=== PATIENT | female | born 1950 | race Caucasian/White ===

== ENCOUNTER → 2017-07-11 | Day surgery (SDC) | payer OTHER, MEDICARE ==
[~2017-07-11] MED LIST: ACETAMINOPHEN 1000 MG/100 ML 100 ML IV ONE; ADVA250A INH; AZIT500I PO; BUPIVACAINE/EPINEPHRINE 0.5% PF 10 ML VIAL ONE; COMBAER INH; ISOSULFAN BLUE 50 MG/5 ML VIAL SQ ONE; LACTATED RINGER'S 1000 ML INJ 1,000 ML ONE; LIDOCAINE 1.5%/EPINEPHrine 1:200,000 PF SOLN 30 ML AMP ONE; MIDAZOLAM HCL 2 MG/2 ML VIAL ONE; ONDANSETRON HCL 4 MG/2 ML VIAL IV PUSH ONE; PRED10PA PO; PROPOFOL 200 MG/20 ML AMP IV ONE; VENTAER INH; ceFAZolin INJ 1,000 MG VIAL ONE
--- NOTE | 2017-07-11 12:56 | TN ---
cc: [facility], SALLY VÁSQUEZ JOSEPH D. M.D. DATE OF SURGERY 07/11/2017 PREOPERATIVE DIAGNOSES Right-sided breast cancer 9 o'clock position POSTOPERATIVE DIAGNOSIS Right-sided breast cancer 9 o'clock position PROCEDURE 1. Injection Lymphazurin blue dye for lymphatic mapping identifying sentinel nodes x3. 2. A needle-localized excisional quadrantectomy or segmental mastectomy for breast cancer to obtain clear margins. ANESTHESIA General SURGEON Dr. Sorto 2 YEAR OLDS PRESCHOOL TEACHER Ms. Jazzmine De Leon, advanced registered nurse practitioner The LICENSED CLINICAL SOCIAL WORKER was present from beginning to the end of the case assisting in all portions of the procedure. It was necessary to have this individual in the room to assist in the above surgical procedure. The surgical procedure was assisted by the LICENSED CLINICAL SOCIAL WORKER. The LICENSED CLINICAL SOCIAL WORKER presence was necessary throughout the case for appropriate retraction, dissection, visualization, and resection of the important anatomical structures during the surgical procedure. The LICENSED CLINICAL SOCIAL WORKER was assisting throughout the entirety of the operation. The skill set of the LICENSED CLINICAL SOCIAL WORKER is medically and surgically necessary to safely complete the surgical procedure. During the surgical case, the operating room nanoscience technician was working instrument table and passing instruments to the attending surgeon and LICENSED CLINICAL SOCIAL WORKER. The LICENSED CLINICAL SOCIAL WORKER was directly assisting the operating surgeon and involved in the technical aspects of the surgical case. INDICATION This is a pleasant 66-year-old female who was found to have a density which biopsied showing a malignancy. Plans were made for above. PROCEDURE The patient taken tot he operating room, placed in the supine position. After anesthesia, we then do a time-out. We inject 6 cc of Lymphazurin blue dye into the tumor site at the 9 o'clock position of the right breast. We do get a hot spot in the right axillary region from the lymphoscintigraphy injection the radiologist did. Once this was done, we then prepped with Betadine the chest, arm, axillary and breast on the right side. First, we make a curvilinear incision in the axillary region with the hot spot localized. We were able to find a fairly superficial lymph node with an ex vivo count of 269. It is blue. [place] node number two is identified that is very deep and very close to the axillary vein. This is teased away from the axillary vein. This is a blue node with an ex vivo count 4344. A third sentinel node is then identified a little bit deeper underneath the pectoralis muscle and this is a small blue node with an ex vivo count of 1551. No other significant counts were then obtained in the axillary region. It is noted that she is a very thin petite lady and she did not have much adipose tissue and no other lymphadenopathy is palpated in the axillary region or the level one, two or three nodes. We then irrigate, hemostasis assured. We closed the deep layer with 3-0 Vicryl and skin with 4-0 Vicryl. We then direct our attention to the needle ish. A horizontal incision was made incorporating needle track ish dissecting superiorly and inferiorly all the way down to the pectoralis muscle and chest wall muscle to obtain as far posteriorly as I can go. We have what appears to be adequate inferior and superior margins and medial margin. We did dissect the tissue just off under the subcutaneous tissue under the subcutaneous skin. This specimen is then marked superiorly with a short stitch and a long stitch placed laterally. It was sent down for specimen imaging and the radiologist called me up here and stated the area in question appears to be excised. We then irrigate, hemostasis assured. We closed the deep layer by reapproximating and rotating some breast tissue to do an oncoplastic closure at the 9 o'clock position and this was accomplished with a 3-0 Vicryl suture. We then close the skin with a 4-0 Vicryl. Steri-Strips applied. Sterile bandage applied. The patient had no immediate postop complication at the time of this dictation. MD JELENA Hodges/PILI /12:36 PM /12:46 PM WINNIE
== END | disposition home or self-care (01) ==
LOC: ESDC 06:10
PROVIDERS: ATTEND Surgery
DX: C50.811 Malignant neoplasm of overlapping sites of right female breast (principal)
CPT/HCPCS: 00400; 01610; 19125; 38525; 38792; 88307; J0131; J0690; J2250; J2405; J3010; J7120; Q9968; 88309

== ENCOUNTER 2018-01-31 19:13 | Inpatient (IN) | payer OTHER, MEDICARE ==
[~2018-01-31] VITALS: Ht 165.1 cm; Wt 44.2 kg
[~2018-01-31 19:13] MED LIST changes: -ACETAMINOPHEN 1000 MG/100 ML 100 ML IV ONE; -BUPIVACAINE/EPINEPHRINE 0.5% PF 10 ML VIAL ONE; -ISOSULFAN BLUE 50 MG/5 ML VIAL SQ ONE; -LACTATED RINGER'S 1000 ML INJ 1,000 ML ONE; -LIDOCAINE 1.5%/EPINEPHrine 1:200,000 PF SOLN 30 ML AMP ONE; -MIDAZOLAM HCL 2 MG/2 ML VIAL ONE; -ONDANSETRON HCL 4 MG/2 ML VIAL IV PUSH ONE; -PROPOFOL 200 MG/20 ML AMP IV ONE; -ceFAZolin INJ 1,000 MG VIAL ONE
[2018-01-31 19:20] VITALS: BP 145/62; PULSE 97; RESP 26; TEMP 98.3
[2018-01-31 19:35] VITALS: BP 142/94; PULSE 86; RESP 16; O2SAT 73
[2018-01-31 19:36] VITALS: O2SAT 94
[2018-01-31] MEDS ORDERED: PREDNISONE PO (19:41)
[2018-01-31] MEDS ORDERED: LEVA500T33 PO (19:41)
[2018-01-31] MEDS ORDERED: ALBUAER3 INH (19:41)
[2018-01-31] MEDS ORDERED: ADVA100A INH (19:41)
[2018-01-31 19:44] VITALS: O2SAT 98
--- NOTE | 2018-01-31 20:03 | RADRPT ---
EXAM DATE/TIME: 01/31/2018 19:49 [place] COMPARISON: No previous studies available for comparison. INDICATIONS : Short of breath. MEDICAL HISTORY : Chronic obstructive pulmonary disease. SURGICAL HISTORY : None. ENCOUNTER: Initial ACUITY: 2 days PAIN SCORE: 0/10 LOCATION: Bilateral chest FINDINGS: Cardiac silhouette is mildly enlarged. There is diffuse mild interstitial prominence. Slight blunting of the costophrenic angles made of lesions. CONCLUSION: Interstitial prominence and possible small effusions. Segundo Rodriguez MD on January 31, 2018 at 20:01 Board Certified Radiologist. This report was verified electronically.
[2018-01-31 20:10] LABS: AUTOMATED NEUTROPHIL # 4.9 TH/MM3 (1.8-7.7); BASOPHIL % 0.4 % (0.0-2.0); EOSINOPHIL % 0.1 % (0.0-4.0); HEMATOCRIT 46.9 % (35.0-46.0); HEMOGLOBIN 15.5 GM/DL (11.6-15.3); LYMPH % 13.1 % (9.0-44.0); LYMPHOCYTE # 0.8 TH/MM3 (1.0-4.8); MEAN CELL VOLUME 92.2 FL (80.0-100.0); MEAN CORPUSCULAR HEMOGLOBIN 30.4 PG (27.0-34.0); MEAN CORPUSCULAR HGB CONC 32.9 % (32.0-36.0); MEAN PLATELET VOLUME 7.4 FL (7.0-11.0); MONO % 9.3 % (0.0-8.0); MONOCYTE # 0.6 TH/MM3 (0-0.9); NEUT % 77.1 % (16.0-70.0); PLATELET COUNT 221 TH/MM3 (150-450); RED BLOOD COUNT 5.09 MIL/MM3 (4.00-5.30); RED CELL DISTRIBUTION WIDTH 15.7 % (11.6-17.2); WHITE BLOOD COUNT 6.3 TH/MM3 (4.0-11.0)
[2018-01-31] MEDS ORDERED: methylPREDNISolone SOD SUCC 125 MG/2 ML VIAL IV PUSH ONE (20:15)
[2018-01-31] MEDS: RESP: ALBUTEROL 2.5 MG/IPRATROPIUM 0.5 MG NEB (SCH) INH ×2 (20:15→20:16)
[2018-01-31] MEDS ORDERED: SODIUM CHLORIDE 0.9% FLUSH 10 ML FLUSH IVF PRN (20:15)
[2018-01-31 20:33] LABS: TROPONIN I 0.02 NG/ML (0.02-0.05)
[2018-01-31 20:41] LABS: BICARBONATE 33.6 MEQ/L (21.0-32.0); CALCIUM 8.5 MG/DL (8.5-10.1); CREATININE 0.74 MG/DL (0.50-1.00)
[2018-01-31 20:47] LABS: PROTHROMBIN TIME - PATIENT 10.5 SEC (9.8-11.6)
--- NOTE | 2018-01-31 21:12 | PD ---
HPI Chief Complaint: Respiratory Symptoms Time Seen by Provider: 19:48 (Tracy Denson) Time Seen by Provider: 19:48 (Matt Vieira MD) Travel History International Travel<30 days: No Contact w/Intl Traveler<30days: No Traveled to known affect area: No (Tracy Denson) History of Present Illness HPI 67-year-old female with a history of COPD presents emergency department for evaluation of shortness of breath is worsened over the last 2 days. Says that she has been using her inhalers, ProAir air and Advair as prescribed however, they do not seem to be helping her. Patient does not use a nebulizer at home. Says that she has had a somewhat productive cough however unable to expectorate this. Says that walking has been making her short of breath which is abnormal for her. She visited her primary care physician a few weeks ago where they prescribed Levaquin and Medrol Dosepak for use as needed. Says that she started them and has been taking the medications since then. She denies any fever, chills, chest pain, abdominal pain, back pain. Of note, patient states that she was using medication for her breast cancer and this seemed to have caused legs swelling, resolved with cessation of the medication. However, this seemed to have recurred. (Tracy Denson) PFSH Past Medical History Cancer: No Cardiovascular Problems: No COPD: Yes Diabetes: No Endocrine: No Genitourinary: No Immune Disorder: No Musculoskeletal: No Neurologic: No Psychiatric: No Reproductive: No Respiratory: Yes Immunizations Current: Yes Radiation Therapy: Yes (10/10/17) Sickle Cell Disease: No Thyroid Disease: No Tetanus Vaccination: Unknown Influenza Vaccination: No Menopausal: Yes (Tracy Denson) Past Surgical History AICD: No Arteriovenous Shunt: No Insulin Pump: No Joint Replacement: No Pacemaker: No Tonsillectomy: Yes Other Surgery: Yes (left breast lumpectomy) (Tracy Denson) Social History Alcohol Use: Yes (SOCIALLY) Tobacco Use: No (QUIT 2011) Substance Use: No (Tracy Denson) Allergies-Medications (Allergen,Severity, Reaction): Coded Allergies: No Known Allergies (Unverified , 02/20/13) Reported Meds & Prescriptions Reported Meds & Active Scripts Active Reported Advair Diskus Inh (Fluticasone-Salmeterol Inh) 100-50 Mcg/Blist Aer 1 Puff INH BID Rinse mouth after use. Proair Hfa 8.5 GM Inh (Albuterol Sulfate) 90 Mcg/Act Aer 2 Puff INH Q4-6H PRN 108 mcg/actuation [prednisone dose pack] Unknown Dose PO DAILY (Matt Vieira MD) Review of Systems Except as stated in HPI: all other systems reviewed are Neg (Tracy Denson) Physical Exam Narrative GENERAL: WD, thin, in NAD SKIN: Warm and dry. HEAD: Atraumatic. Normocephalic. EYES: Pupils equal and round. No scleral icterus. No injection or drainage. ENT: No nasal bleeding or discharge. Mucous membranes pink and moist. NECK: Trachea midline. No JVD. No lymphadenopathy CARDIOVASCULAR: Regular rate and rhythm. RESPIRATORY: Some accessory muscle use noted. Clear to auscultation. Breath sounds equal bilaterally. GASTROINTESTINAL: Abdomen soft, non-tender, nondistended. Hepatic and splenic margins not palpable. MUSCULOSKELETAL: Extremities without clubbing, cyanosis, or edema. No obvious deformities. NEUROLOGICAL: Awake and alert. No obvious cranial nerve deficits. Motor grossly within normal limits. Five out of 5 muscle strength in the arms and legs. Normal speech. PSYCHIATRIC: Appropriate mood and affect; insight and judgment normal. (Tracy Denson) Data Data Last Documented VS Vital Signs Date Time Temp Pulse Resp B/P (MAP) Pulse Ox O2 Delivery O2 Flow Rate FiO2 01/31/18 21:36 95 Nasal Cannula 2.00 01/31/18 21:30 82 24 156/99 (118) 01/31/18 19:20 98.3 (Matt Vieira MD) Orders Orders Chest, Single Ap (01/31/18 ) Electrocardiogram (01/31/18 ) Complete Blood Count With Diff (01/31/18 19:41) Basic Metabolic Panel (Bmp) (01/31/18 19:41) Iv Access Insert/Monitor (01/31/18 19:41) Ecg Monitoring (01/31/18 19:41) Troponin I (01/31/18 19:41) B-Type Natriuretic Peptide (01/31/18 19:45) Act Partial Throm Time (Ptt) (01/31/18 20:06) Prothrombin Time / Inr (Pt) (01/31/18 20:06) Ckmb (Isoenzyme) Profile (01/31/18 20:06) Oximetry (01/31/18 20:06) Oxygen Administration (01/31/18 20:06) Sodium Chloride 0.9% Flush (Ns Flush) (01/31/18 20:15) Methylprednisolone So Succ Inj (Solumedr (01/31/18 20:15) Albuterol-Ipratropium Neb (Duoneb Neb) (01/31/18 20:15) Nitroglycerin 2% Oint (Nitroglycerin 2% (01/31/18 21:30) Furosemide Inj (Lasix Inj) (01/31/18 21:30) Methylprednisolone So Succ Inj (Solumedr (02/01/18 00:00) Budeson-Formot 160-4.5 Mcg Inh (Symbicor (02/01/18 09:00) Albuterol-Ipratropium Neb (Duoneb Neb) (02/01/18 08:00) Albuterol-Ipratropium Neb (Duoneb Neb) (01/31/18 22:15) Levofloxacin 750 Mg Premix Inj (Levaquin (01/31/18 23:00) Furosemide Inj (Lasix Inj) (02/01/18 09:00) Admit To Inpatient (01/31/18 ) Vital Signs (Adult) Q4H (01/31/18 22:05) Activity Oob With Assistance (01/31/18 22:05) Intake + Output MARK.QSHIFT (01/31/18 22:05) Diet Heart Healthy (02/01/18 Breakfast) Sodium Chloride 0.9% Flush (Ns Flush) (01/31/18 22:15) Sodium Chloride 0.9% Flush (Ns Flush) (02/01/18 09:00) Ondansetron Inj (Zofran Inj) (01/31/18 22:15) Comprehensive Metabolic Panel (02/01/18 06:00) Complete Blood Count With Diff (02/01/18 06:00) Case Management Consult (01/31/18 22:05) Scd Bilateral/Knee High MARK.BID (01/31/18 22:05) [place] Bilateral/Knee High MARK.QSHIFT (01/31/18 22:08) Acetaminophen (Tylenol) (01/31/18 22:15) Acetamin-Hydrocod 325-5 Mg ([place] 5-325 (01/31/18 22:15) Morphine Inj (Morphine Inj) (01/31/18 22:15) Docusate Sodium-Senna (Rachel-Colace) (02/01/18 09:00) Magnesium Hydroxide Liq (Milk Of Magnesi (01/31/18 22:15) Sennosides (Senokot) (01/31/18 22:15) Bisacodyl Supp (Dulcolax Supp) (01/31/18 22:15) Lactulose Liq (Lactulose Liq) (01/31/18 22:15) Inpatient Certification (01/31/18 ) Admit Order (Ed Use Only) (01/31/18 22:26) Hepatic Functional Panel (01/31/18 20:06) Echo 2d Comp With Doppler (02/02/18 ) (Matt Vieira MD) Labs Laboratory Tests Test 01/31/18 19:45 White Blood Count 6.3 TH/MM3 Red Blood Count 5.09 MIL/MM3 Hemoglobin 15.5 GM/DL Hematocrit 46.9 % Mean Corpuscular Volume 92.2 FL Mean Corpuscular Hemoglobin 30.4 PG Mean Corpuscular Hemoglobin Concent 32.9 % Red Cell Distribution Width 15.7 % Platelet Count 221 TH/MM3 Mean Platelet Volume 7.4 FL Neutrophils (%) (Auto) 77.1 % Lymphocytes (%) (Auto) 13.1 % Monocytes (%) (Auto) 9.3 % Eosinophils (%) (Auto) 0.1 % Basophils (%) (Auto) 0.4 % Neutrophils # (Auto) 4.9 TH/MM3 Lymphocytes # (Auto) 0.8 TH/MM3 Monocytes # (Auto) 0.6 TH/MM3 Eosinophils # (Auto) 0.0 TH/MM3 Basophils # (Auto) 0.0 TH/MM3 CBC Comment DIFF FINAL Differential Comment Prothrombin Time 10.5 SEC Prothromb Time International Ratio 1.0 RATIO Activated Partial Thromboplast Time 24.4 SEC Blood Urea Nitrogen 25 MG/DL Creatinine 0.74 MG/DL Random Glucose 117 MG/DL Calcium Level 8.5 MG/DL Sodium Level 137 MEQ/L Potassium Level 4.5 MEQ/L Chloride Level 96 MEQ/L Carbon Dioxide Level 33.6 MEQ/L Anion Gap 7 MEQ/L Estimat Glomerular Filtration Rate 78 ML/MIN Total Bilirubin 0.5 MG/DL Direct Bilirubin 0.1 MG/DL Indirect Bilirubin 0.4 MG/DL Aspartate Amino Transf (AST/SGOT) 64 U/L Alanine Aminotransferase (ALT/SGPT) 83 U/L Alkaline Phosphatase 93 U/L Total Creatine Kinase 66 U/L Troponin I 0.02 NG/ML B-Type Natriuretic Peptide 794 PG/ML Total Protein 6.8 GM/DL Albumin 3.5 GM/DL (Matt Vieira MD) MDM Medical Decision Making Medical Screen Exam Complete: Yes Emergency Medical Condition: Yes Differential Diagnosis COPD exacerbation, CHF, Sepsis, pneumonia Narrative Course 67-year-old female with history of breast cancer presents emergency department evaluation of shortness of breath that is worsened over the last 2 days. Patient states that she has had associated cough but has been nonproductive. Patient has been using Levaquin and prednisone without relief. She also has Advair and pro-air but this notes does not seem to help her shortness of breath either patient states that she normally is able to walk without SOB. Patient does not use oxygen at home. Labs and imaging studies ordered. Initial evaluation demonstrated SaO2 73%. 4 L/min O2 administered and patient essentially improved to 98%. Duo nebs 3, Solu-Medrol 125 mg administered. Says she feels a little better. CBC & BMP Diagram 01/31/18 19:45 Calcium Level 8.5 Of note, BNP was over 700. Note that patient does not have a history of congestive heart failure although she was due to follow-up with a health education aide within the next couple of weeks for further evaluation of the SOB and lower extremity edema. Nitro paste and Lasix administered. Pt may have some exacerbation of COPD however, because of the apparent new finding of elevated BNP and minimal response to the outpatient use of levaquin and prednisone, she should be evaluated further for CHF. Pt will be admitted to Dr. Melton for new onset CHF exacerbation. (Tracy Denson) Diagnosis Primary Impression: COPD exacerbation Additional Impression: CHF (congestive heart failure) Qualified Codes: I50.9 - Heart failure, unspecified Admitting Information Admitting Physician Requests: Admit (Tracy Denson) Admitting Physician Requests: Admit (Matt Vieira MD) Scripts Compressor Nebulizer (Compressor Nebulizer) 1 Mis Mis EA .XX DIRECTED for Breathing Treatment, #1 0 Refills Prov: Magda Cui MD 02/04/18 Prednisone (Prednisone) 20 Mg Tab 40 MG PO DAILY for Shortness of Breath, #5 TAB 0 Refills Take 40 mg (2 tablets) daily for 5 days Prov: Magda Cui MD 02/04/18 Fluticasone-Salmeterol Inh (Advair Diskus Inh) 250-50 Mcg/Blist Aer 1 PUFF INH BID for Shortness of Breath, #1 INHALER 0 Refills Rinse mouth after use. Prov: Magda Cui MD 02/04/18 Oxygen (O2) (Oxygen (O2)) Device LITER HUMBLE.CANULA CONTINUOUS for Prevent Hypoxemia, #4 99 Refills Oxygen Concentrator Portable Gaseous 2 L/min via Nasal Canula Continuous For 99 months Prov: Magda Cui MD 02/04/18 Levofloxacin (Levaquin) 500 Mg Tablet 500 MG PO DAILY for Infection, #5 TAB 0 Refills Prov: Magda Cui MD 02/04/18 Condition: Stable Tracy Denson Jan 31, 2018 21:12 Matt Vieira MD Feb 04, 2018 13:17
[2018-01-31 21:30] VITALS: BP 156/99; PULSE 82; RESP 24; O2SAT 97
[2018-01-31] MEDS ORDERED: NITROGLYCERIN 2% OINT 1 GM PACKET TOPICAL ONE (21:30)
[2018-01-31] MEDS ORDERED: FUROSEMIDE 20 MG/2 ML VIAL IV PUSH ONE (21:30)
[2018-01-31 21:36] VITALS: O2SAT 95
--- NOTE | 2018-01-31 22:09 | HHI.HP ---
HPI Service [facility] Primary Care Physician Non-Staff Admission Diagnosis Diagnoses: (1) COPD (chronic obstructive pulmonary disease) Diagnosis: Principal (2) Hypoxia Diagnosis: Principal (3) Pleural effusion Diagnosis: Principal (4) Breast CA Diagnosis: Principal Travel History International Travel<30 Days: No Contact w/Intl Traveler <30 Da: No Traveled to Known Affected Are: No History of Present Illness This is a 67-year-old male with a PMH of Breast CA s/p Chemo/Radiation and COPD who presented to the ER with complaints of SOB and wheezing x2 days. Has been using ProAir and Advair with no relief. Not on home O2. Does note recent productive cough w/ green colored sputum, has been on Levaquin and Medrol Dosepak x1wk w/ no improvement. Denies fever, chills or chest pain. On arrival , BP 142/94, HR 86, O2 sat 73% on RA, Afebrile. O2 sat currently 95% on 2L NC. CBC essentially unremarkable except for mild hemoconcentration. Chemistry essentially unremarkable except for GFR 78. BNP 794. INR 1.0 CXR with interstitial prominence and possible small effusion. Notes ankle swelling x2 wks, no h/o CHF. S/p Lasix, DuoNeb and Solu-Medrol in ER w/ improvement. Review of Systems Except as stated in HPI: all other systems reviewed are Neg ROS: 14 point review of systems otherwise negative. Past Family Social History Past Medical History PMH: Breast CA s/p Chemo/Radiation and COPD Past Surgical History PAST SURGICAL HISTORY: Left Breast Lumpectomy, Tonsillectomy Allergies: Coded Allergies: No Known Allergies (Unverified , 02/20/13) Family History PAST FAMILY HISTORY: Reviewed. No h/o DM or CAD Social History PAST SOCIAL HISTORY: Occasional alcohol. Negative for tobacco or drugs. Physical Exam Vital Signs Vital Signs Date Time Temp Pulse Resp B/P (MAP) Pulse Ox O2 Delivery O2 Flow Rate FiO2 01/31/18 21:36 95 Nasal Cannula 2.00 01/31/18 21:30 82 24 156/99 (118) 97 Nasal Cannula 2.00 01/31/18 19:44 98 Nasal Cannula 4.00 01/31/18 19:36 94 Nasal Cannula 4.00 01/31/18 19:35 86 16 142/94 (110) 73 Room Air 01/31/18 19:20 98.3 97 26 145/62 (89) Physical Exam PE: GENERAL: Very pleasant, thin middle-aged white female in no acute distress. HEENT: PERRLA, EOMI. No scleral icterus or conjunctival pallor. No lid lag or facial droop. CARDIOVASCULAR: Regular rate and rhythm. No obvious murmurs to auscultation. No chest tenderness to palpation. RESPIRATORY: No obvious rhonchi. +wheezing, otherwise clear to auscultation. Breath sounds equal bilaterally. GASTROINTESTINAL: Abdomen soft, non-tender, nondistended. BS normal. MUSCULOSKELETAL: Extremities without clubbing, cyanosis, or edema. No obvious deformities. NEUROLOGICAL: Awake, alert and oriented x4. No focal neurologic deficits. Moving both upper and lower extremities spontaneously. Laboratory Laboratory Tests Test 01/31/18 19:45 White Blood Count 6.3 Red Blood Count 5.09 Hemoglobin 15.5 Hematocrit 46.9 Mean Corpuscular Volume 92.2 Mean Corpuscular Hemoglobin 30.4 Mean Corpuscular Hemoglobin Concent 32.9 Red Cell Distribution Width 15.7 Platelet Count 221 Mean Platelet Volume 7.4 Neutrophils (%) (Auto) 77.1 Lymphocytes (%) (Auto) 13.1 Monocytes (%) (Auto) 9.3 Eosinophils (%) (Auto) 0.1 Basophils (%) (Auto) 0.4 Neutrophils # (Auto) 4.9 Lymphocytes # (Auto) 0.8 Monocytes # (Auto) 0.6 Eosinophils # (Auto) 0.0 Basophils # (Auto) 0.0 CBC Comment DIFF FINAL Differential Comment Prothrombin Time 10.5 Prothromb Time International Ratio 1.0 Activated Partial Thromboplast Time 24.4 Blood Urea Nitrogen 25 Creatinine 0.74 Random Glucose 117 Calcium Level 8.5 Sodium Level 137 Potassium Level 4.5 Chloride Level 96 Carbon Dioxide Level 33.6 Anion Gap 7 Estimat Glomerular Filtration Rate 78 Troponin I 0.02 B-Type Natriuretic Peptide 794 Result Diagram: 01/31/18194401/31/181944 Caprini VTE Risk Assessment Caprini VTE Risk Assessment: No/Low Risk (score <= 1) Caprini Risk Assessment Model Point Value = 1 Point Value = 2 Point Value = 3 Point Value = 5 Age 41-60 Minor surgery BMI > 25 kg/m2 Swollen legs Varicose veins or History of unexplained or recurrent spontaneous Oral contraceptives or hormone replacement Sepsis (< 1 month) Serious lung disease, including pneumonia (< 1 month) Abnormal pulmonary function Acute myocardial infarction Congestive heart failure (< 1 month) History of inflammatory bowel disease Medical patient at bed rest Age 61-74 Arthroscopic surgery Major open surgery (> 45 min) Laparoscopic surgery (> 45 min) Malignancy Confined to bed (> 72 hours) Immobilizing plaster cast Central venous access Age >= 75 History of VTE Family history of VTE Factor V Leiden Prothrombin [id number] Lupus anticoagulant Anticardiolipin antibodies Elevated serum homocysteine Heparin-induced thrombocytopenia Other congenital or acquired thrombophilia Stroke (< 1 month) Elective arthroplasty Hip, pelvis, or leg fracture Acute spinal cord injury (< 1 month) Prophylaxis Regimen Total Risk Factor Score Risk Level Prophylaxis Regimen 0-1 Low Early ambulation 2 Moderate Order ONE of the following: *Sequential Compression Device (SCD) *Heparin 5000 units SQ BID 3-4 Higher Order ONE of the following medications: *Heparin 5000 units SQ TID *Enoxaparin/Lovenox 40 mg SQ daily (WT < 150 kg, CrCl > 30 mL/min) *Enoxaparin/Lovenox 30 mg SQ daily (WT < 150 kg, CrCl > 10-29 mL/min) *Enoxaparin/Lovenox 30 mg SQ BID (WT < 150 kg, CrCl > 30 mL/min) AND/OR *Sequential Compression Device (SCD) 5 or more Highest Order ONE of the following medications: *Heparin 5000 units SQ TID (Preferred with Epidurals) *Enoxaparin/Lovenox 40 mg SQ daily (WT < 150 kg, CrCl > 30 mL/min) *Enoxaparin/Lovenox 30 mg SQ daily (WT < 150 kg, CrCl > 10-29 mL/min) *Enoxaparin/Lovenox 30 mg SQ BID (WT < 150 kg, CrCl > 30 mL/min) AND *Sequential Compression Device (SCD) Assessment and Plan Problem List: (1) COPD (chronic obstructive pulmonary disease) ICD Code: J44.9 - Chronic obstructive pulmonary disease, unspecified (2) Hypoxia ICD Code: R09.02 - Hypoxemia (3) Pleural effusion ICD Code: J90 - Pleural effusion, not elsewhere classified (4) Breast CA ICD Code: C50.919 - Malignant neoplasm of unspecified site of unspecified female breast Assessment and Plan A/P: 1. COPD: Chronic Respiratory Failure w/ Acute Exacerbation. Severe. Failed outpatient tx w/ Levaquin/Medrol Dosepak/MDI. Continue Solu-Medrol, Symbicort, DuoNeb, Mucinex, check Sputum Cultures, continue w/ IV Abx in light of productive cough. 2. Hypoxia: O2 sat 73% on RA, currently 95% on 2L NC, not on home O2. CXR w/ no acute infiltrate, images reviewed by me. Monitor O2, check ABG if persistent hypoxia. 3. Pleural Effusions: CXR w/ interstitial prominence and possible small effusions, images reviewed by me, no h/o CHF. BNP 794. Recent Radiation for Breast CA. Will check Echo to eval for possible heart failure. S/p Lasix in ER , monitor I/O. 4. Breast CA: s/p Chemo/Radiation, recently completed therapy, currently in remission. Follow up w/ Onc as scheduled. 5. DVT Prophylaxis: SCD/Teds 6. Social work for d/c planning as need 7. Case discussed w/ ER physician at length, labs/records/imaging reviewed by me. Physician Certification 2 Midnight Certification Type: Admission for Inpatient Services Order for Inpatient Services The services are ordered in accordance with Medicare regulations or non- Medicare payer requirements, as applicable. In the case of services not specified as inpatient-only, they are appropriately provided as inpatient services in accordance with the 2-midnight benchmark. Estimated LOS (days): 2 days is the estimated time the patient will need to remain in the hospital, assuming treatment plan goals are met and no additional complications. Post-Hospital Plan: Not yet determined Yadira Melton MD Jan 31, 2018 22:09
[2018-01-31] MEDS ORDERED: ACETAMINOPHEN/HYDROcodone 325 MG/5 MG TAB PO PRN (22:15)
[2018-01-31] MEDS ORDERED: RESP: ALBUTEROL 2.5 MG/IPRATROPIUM 0.5 MG NEB (PRN) NEB (22:15)
[2018-01-31] MEDS ORDERED: BISACODYL 10 MG SUPP RECTAL PRN (22:15)
[2018-01-31] MEDS ORDERED: MAGNESIUM HYDROXIDE SUSP 30 ML CUP PO PRN (22:15)
[2018-01-31] MEDS ORDERED: ACETAMINOPHEN 325 MG TAB PO PRN (22:15)
[2018-01-31] MEDS ORDERED: SODIUM CHLORIDE 0.9% FLUSH 10 ML FLUSH IV FLUSH PRN (22:15)
[2018-01-31] MEDS ORDERED: MORPHINE SULFATE 2 MG/ML SYRINGE IV PUSH PRN (22:15)
[2018-01-31] MEDS ORDERED: ONDANSETRON HCL 4 MG/2 ML VIAL IVP PRN (22:15)
[2018-01-31] MEDS ORDERED: LACTULOSE SYRUP 20 GM/30 ML CUP PO PRN (22:15)
[2018-01-31] MEDS ORDERED: SENNOSIDES 8.6 MG TAB PO PRN (22:15)
[2018-01-31] MEDS: LEVOFLOXACIN 750 MG PREMIX INJ 150 ML IV SCH (23:13)
[2018-02-01] VITALS (10 sets, daily range): BP systolic 101–150; BP diastolic 59–86; PULSE 69–100; RESP 16–20; TEMP 96.9–99.2; O2SAT 92–95
[2018-02-01] MEDS: methylPREDNISolone SOD SUCC 40 MG/1 ML VIAL IV PUSH SCH ×5 (01:37→23:22)
[2018-02-01 02:35] LABS: ALBUMIN 3.5 GM/DL (3.4-5.0); DIRECT BILIRUBIN ADULT 0.1 MG/DL (0.0-0.2); INDIRECT BILIRUBIN 0.4 MG/DL (0.0-0.8); TOTAL BILIRUBIN ADULT 0.5 MG/DL (0.2-1.0); TOTAL PROTEIN 6.8 GM/DL (6.4-8.2)
[2018-02-01 05:48] LABS: ALBUMIN 3.2 GM/DL (3.4-5.0); BICARBONATE 42.8 MEQ/L (21.0-32.0); BLOOD UREA NITROGEN 20 MG/DL (7-18); CALCIUM 8.2 MG/DL (8.5-10.1); CHLORIDE 94 MEQ/L (98-107); CREATININE 0.75 MG/DL (0.50-1.00); GLOMERULAR FILTRATION RATE 77 ML/MIN (>89); GLUCOSE,RANDOM 133 MG/DL (74-106); SODIUM (NA) 138 MEQ/L (136-145)
[2018-02-01 05:50] LABS: AST (GOT) 44 U/L (15-37)
[2018-02-01 05:52] LABS: BASOPHIL % 0.1 % (0.0-2.0); HEMATOCRIT 47.6 % (35.0-46.0); HEMOGLOBIN 15.3 GM/DL (11.6-15.3); LYMPH % 6.6 % (9.0-44.0); LYMPHOCYTE # 0.4 TH/MM3 (1.0-4.8); MEAN CORPUSCULAR HEMOGLOBIN 29.9 PG (27.0-34.0); MEAN CORPUSCULAR HGB CONC 32.2 % (32.0-36.0); MEAN PLATELET VOLUME 7.5 FL (7.0-11.0); MONO % 2.2 % (0.0-8.0); MONOCYTE # 0.1 TH/MM3 (0-0.9); NEUT % 91.1 % (16.0-70.0); PLATELET COUNT 195 TH/MM3 (150-450); RED BLOOD COUNT 5.12 MIL/MM3 (4.00-5.30); RED CELL DISTRIBUTION WIDTH 15.7 % (11.6-17.2); WHITE BLOOD COUNT 5.5 TH/MM3 (4.0-11.0)
[2018-02-01 05:55] LABS: ALKALINE PHOSPHATASE 82 U/L (45-117); ALT (GPT) 70 U/L (10-53); TOTAL BILIRUBIN ADULT 0.4 MG/DL (0.2-1.0); TOTAL PROTEIN 6.4 GM/DL (6.4-8.2)
[2018-02-01] MEDS: RESP: ALBUTEROL 2.5 MG/IPRATROPIUM 0.5 MG NEB (SCH) NEB ×4 (08:00→19:45)
--- NOTE | 2018-02-01 08:54 | HHI.PR ---
Subjective Remarks Patient is in bed wheezing. Some shortness of breath. Patient says she does not have oxygen at home and she never been intubated. Follows with her primary care doctor takes care of her COPD. Chest pain.. No nausea or vomiting no diarrhea constipation. Objective Vitals Vital Signs Date Time Temp Pulse Resp B/P (MAP) Pulse Ox O2 Delivery O2 Flow Rate FiO2 02/01/18 07:54 98.5 87 18 127/73 (91) 94 02/01/18 07:24 Nasal Cannula 2.00 02/01/18 06:15 Nasal Cannula 2.00 02/01/18 06:15 96.9 69 16 129/72 (91) 94 02/01/18 05:00 84 18 143/86 (105) 95 Nasal Cannula 2.00 02/01/18 02:30 96 18 150/85 (106) 92 Nasal Cannula 2.00 02/01/18 00:00 84 20 135/74 (94) 95 Nasal Cannula 2.00 01/31/18 21:36 95 Nasal Cannula 2.00 01/31/18 21:30 82 24 156/99 (118) 97 Nasal Cannula 2.00 01/31/18 19:44 98 Nasal Cannula 4.00 01/31/18 19:36 94 Nasal Cannula 4.00 01/31/18 19:35 86 16 142/94 (110) 73 Room Air 01/31/18 19:20 98.3 97 26 145/62 (89) I/O 01/31/18 01/31/18 01/31/18 02/01/18 02/01/18 02/01/18 07:00 15:00 23:00 07:00 15:00 23:00 Intake Total 150 ml Balance 150 ml Intake Oral 0 ml IV Total 150 ml # Voids 0 # Bowel Movements 0 Result Diagram: 02/01/18 0452 02/01/18 0452 Imaging Last Impressions Chest X-Ray 01/31/18 0000 Signed Impressions: Service Date/Time: January 19:49 - CONCLUSION: Interstitial prominence and possible small effusions. Segundo Rodriguez MD Objective Remarks GENERAL: Very pleasant, thin middle-aged white female in no acute distress. CARDIOVASCULAR: Regular rate and rhythm. No obvious murmurs to auscultation. No chest tenderness to palpation. RESPIRATORY: +wheezing, decreased breath sounds. No obvious rhonchi. On 2L NC GASTROINTESTINAL: Abdomen soft, non-tender, nondistended. BS normal. MUSCULOSKELETAL: Extremities without clubbing, cyanosis, or edema. No obvious deformities. NEUROLOGICAL: Awake, alert and oriented x4. No focal neurologic deficits. Moving both upper and lower extremities spontaneously. A/P Problem List: (1) COPD (chronic obstructive pulmonary disease) ICD Code: J44.9 - Chronic obstructive pulmonary disease, unspecified (2) Hypoxia ICD Code: R09.02 - Hypoxemia (3) Pleural effusion ICD Code: J90 - Pleural effusion, not elsewhere classified (4) Breast CA ICD Code: C50.919 - Malignant neoplasm of unspecified site of unspecified female breast Assessment and Plan COPD with exacerbation, severe Acute Respiratory Failure with Acute Exacerbation. Severe. Patien tis not on O2 at home . Failed outpatient tx w/ Levaquin/Medrol Dosepak/MDI. Continue Solu-Medrol and taper as tolerated Continue Symbicort, DuoNeb, Mucinex check Sputum Cultures continue IV Abx in light of productive cough. Add IS Hypoxia: O2 sat 73% on RA, currently 95% on 2L NC, not on home O2. CXR reviewed no acute infiltrate. Monitor O2, check ABG if persistent hypoxia. Pleural Effusions: CXR w/ interstitial prominence and possible small effusions , images reviewed by me, no h/o CHF. BNP 794. Recent Radiation for Breast CA. Echo to eval for possible heart failure. Received Lasix in ER, monitor I/O. Start lasix 20 mg daily monitor kidney function, VS and UOP Breast CA: s/p Chemo/Radiation, recently completed therapy, currently in remission. Follow up w/ Onc as scheduled. DVT Prophylaxis: SCD/Teds CM consulted for DC planning as need Discussed with the patient, nurse Sammi Mcginnis MD Feb 01, 2018 08:54
[2018-02-01] MEDS: BUDESONIDE-FORMOTEROL 160/4.5 MCG INHALER INH SCH ×2 (09:00→21:00)
[2018-02-01] MEDS: FUROSEMIDE 20 MG/2 ML VIAL IV PUSH SCH ×2 (10:24→18:03)
[2018-02-01] MEDS: guaiFENesin E.R. 600 MG TAB PO SCH ×2 (10:25→23:22)
[2018-02-01] MEDS: DOCUSATE SODIUM 50 MG/SENNA 8.6 MG TAB PO SCH ×2 (10:25→23:21)
[2018-02-01] MEDS: SODIUM CHLORIDE 0.9% FLUSH 10 ML FLUSH IV FLUSH SCH ×2 (13:05→23:22)
[2018-02-02] VITALS (9 sets, daily range): BP systolic 112–138; BP diastolic 58–75; PULSE 85–108; RESP 17–20; TEMP 97–98.3; O2SAT 92–100
[2018-02-02] MEDS: methylPREDNISolone SOD SUCC 40 MG/1 ML VIAL IV PUSH SCH ×4 (06:15→23:39)
[2018-02-02] MEDS: RESP: ALBUTEROL 2.5 MG/IPRATROPIUM 0.5 MG NEB (SCH) NEB ×4 (07:31→19:48)
[2018-02-02] MEDS: guaiFENesin E.R. 600 MG TAB PO SCH ×2 (08:27→22:08)
[2018-02-02] MEDS: DOCUSATE SODIUM 50 MG/SENNA 8.6 MG TAB PO SCH ×2 (08:27→22:09)
[2018-02-02] MEDS: SODIUM CHLORIDE 0.9% FLUSH 10 ML FLUSH IV FLUSH SCH ×2 (08:28→22:11)
[2018-02-02] MEDS: FUROSEMIDE 20 MG/2 ML VIAL IV PUSH SCH ×2 (08:28→17:14)
--- NOTE | 2018-02-02 09:10 | EKG ---
Date Performed: 01/31/2018 Time Performed: 19:39:32 PTAGE: 67 years EKG: Sinus rhythm POSSIBLE RIGHT ATRIAL ENLARGEMENT LEFT ATRIAL ENLARGEMENT BORDERLINE RIGHT AXIS DEVIATION NONSPECIFI C ST & T-WAVE ABNORMALITY ABNORMAL ECG PREVIOUS TRACING : 01/31/2018 19.24 DOCTOR: Nadeen Jarvis Interpretating Date/Time 02/02/2018 09:07:57
--- NOTE | 2018-02-02 10:40 | HHI.PR ---
Subjective Remarks Pt seen and examined. VS reviewed. Saturating 100% on 3L nasal cannula. Pt states she actually feels more short of breath than when she came in. She states at rest she feels a little better but she is dyspneic with minimal exertion which is unusual for her. She endorses mild wheezing and occasional dry cough. She denies chest pain or tightness. She states her symptoms feel different than with prior COPD exacerbations, mostly she would have been feeling better by now with steroids and breathing treatments with her typical flare-ups. She feels like she can't get a good breath. She states she had shortness of breath and leg swelling when she was on a hormone pill for her breast cancer but that was discontinued and her symptoms improved. However, recently in the past few weeks those symptoms returned despite not being on any hormone therapy or chemo. She states she has never had an echocardiogram. 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 She endorses feeling nervous. Objective Vital Signs Date Time Temp Pulse Resp B/P (MAP) Pulse Ox O2 Delivery O2 Flow Rate FiO2 02/02/18 08:00 97 02/02/18 08:00 Nasal Cannula 3.00 02/02/18 08:00 98.1 93 18 135/70 (91) 100 02/02/18 07:34 Nasal Cannula 3.00 02/02/18 04:00 85 02/02/18 04:00 98.3 87 17 138/75 (96) 96 02/02/18 00:00 98 02/02/18 00:00 98.2 99 18 112/73 (86) 92 02/01/18 20:00 Nasal Cannula 2.00 02/01/18 20:00 98.4 100 19 117/61 (79) 92 02/01/18 20:00 93 02/01/18 19:47 92 Nasal Cannula 3.00 02/01/18 17:30 99.2 97 18 109/59 (76) 93 02/01/18 15:55 98.4 94 18 115/65 (82) 93 02/01/18 12:21 98.5 100 18 101/59 (73) 93 I/O 4/20/18 4/20/18 4/20/18 4/21/18 4/21/18 4/21/18 07:00 15:00 23:00 07:00 15:00 23:00 Intake Total 150 ml 120 ml 240 ml 600 ml Balance 150 ml 120 ml 240 ml 600 ml Intake Oral 0 ml 120 ml 240 ml 600 ml IV Total 150 ml # Voids 0 1 3 # Bowel Movements 0 Result Diagram: 02/01/1845102/01/18451 Objective Remarks GENERAL: Thin female sitting up in bed. SKIN: Warm and dry. HEENT: AT/NC. Pupils equal and round. MMM. NECK: Supple no tender LAD or JVD. HEART: RRR no m/r/g. LUNGS: Bibasilar wheezing otherwise clear to auscultation thought patient appears short of breath. ABDOMEN: +BS, soft, NT, ND. EXTREMITIES: No LE edema. 2+ pedal pulses. NEURO: Awake and alert. Nonfocal. PSYCH: Appropriate mood and affect. A/P Assessment and Plan 67 YOWF with COPD and breast cancer s/p chemo and radiation admitted on 01/31 for COPD exacerbation after failing outpatient treatment. 1. COPD exacerbation - Pt initially hypoxic with 73% O2 sat on room air in the ED, improved with 4L nasal cannula - CXR on admission with interstitial prominence and possible small effusions - Failed outpatient therapy with Levaquin, Medrol dosepak, and bronchodilators - Continue Symbicort and Mucinex - Continue DuoNebs - Continue IV Levaquin - Sputum cultures pending - Check urine legionella and strep urine Ag - Supplemental O2 2. Hypoxia/dyspnea - Improved with nasal cannula - Supplemental O2 to maintain sats >92% - Not on home O2 - Will need O2 walk test prior to discharge if still requiring oxygen - Check 2D echo and CTA given continued shortness of breath despite adequate treatment and patient's history of recent malignancy - Consider cardiotoxicity from breast radiation 3. H/o breast cancer - s/p lumpectomy and radiation in the fall - Currently off of hormone therapy secondary to side effects of edema and shortness of breath - F/u as OP DVT prophylaxis: Lovenox Discharge Planning Pending clinical improvement and further work-up including 2D echo and CTA Magda Cui MD Feb 02, 2018 10:40
[2018-02-02] MEDS: BUDESONIDE-FORMOTEROL 160/4.5 MCG INHALER INH SCH ×2 (10:58→22:08)
[2018-02-02] MEDS: ENOXAPARIN SODIUM 40 MG/0.4 ML SYRINGE SQ SCH (11:20)
--- NOTE | 2018-02-02 13:44 | ECHRPT ---
Indication: HEART FAILURE CONCLUSIONS Normal left ventricular size. Wall thickness is normal. The left ventricular systolic function is normal with an estimated ejection fraction in the range of 60-65%. The right ventricle is moderately dilated. The right ventricular systoilc function is moderately decreased. The right atrial size is gdflvcqy-om-rjuvgkhj dilated. There is moderate tricuspid regurgitation. The estimated pulmonary arterial pressure is 60.1 mmHg. There is estimated mhbpkxmz-jp-pahqrg pulmonary hypertension present (range 60-70 mmHg). BP: 112 / 73 HR: 85 Rhythm: Sinus MEASUREMENTS (Male / Female) Normal Values Technical Quality:Fair 2D ECHO LV Diastolic Diameter PLAX 3.0 cm 4.2 - 5.9 / 3.9 - 5.3 cm LV Systolic Diameter PLAX 2.1 cm IVS Diastolic Thickness 0.9 cm 0.6 - 1.0 / 0.6 - 0.9 cm LVPW Diastolic Thickness 0.9 cm 0.6 - 1.0 / 0.6 - 0.9 cm LV Relative Wall Thickness 0.6 RV Internal Dim ED PLAX 3.2 cm LVOT Diameter 1.4 cm Aortic Root Diameter 3.3 cm LA Systolic Diameter LX 3.0 cm 3.0 - 4.0 / 2.7 - 3.8 cm M-MODE AV Cusp Separation MM 2.1 cm DOPPLER AV Peak Velocity 123.0 cm/s AV Peak Gradient 6.1 mmHg AV Mean Gradient 4.0 mmHg AV Velocity Time Integral 23.8 cm LVOT Peak Velocity 85.7 cm/s LVOT Peak Gradient 2.9 mmHg LVOT Velocity Time Integral 14.8 cm AV Area Cont Eq vti 1.0 cm AV Area Cont Eq pk 1.1 cm Mitral E Point Velocity 47.4 cm/s Mitral A Point Velocity 71.1 cm/s Mitral E to A Ratio 0.7 LV E' Lateral Velocity 7.8 cm/s Mitral E to LV E' Lateral Ratio 6.1 LV E' Septal Velocity 3.9 cm/s Mitral E to LV E' Septal Ratio 12.2 TR Peak Velocity 354.0 cm/s TR Peak Gradient 50.1 mmHg Right Atrial Pressure 10.0 mmHg Pulmonary Artery Systolic Pressu 60.1 mmHg Right Ventricular Systolic Press 60.1 mmHg PV Peak Velocity 61.7 cm/s PV Peak Gradient 1.5 mmHg FINDINGS LEFT VENTRICLE Normal left ventricular size. Wall thickness is normal. The left ventricular systolic function is normal with an estimated ejection fraction in the range of 60-65%. RIGHT VENTRICLE The right ventricle is moderately dilated. The right ventricular systoilc function is moderately decreased. LEFT ATRIUM The left atrial size is normal. RIGHT ATRIUM The right atrial size is cyxuvveh-wz-qsdpbbmc dilated. ATRIAL SEPTUM No atrial level shunt is demonstrated by color flow Doppler interrogation. AORTA The aortic root and proximal ascending aorta are normal in size on limited imaging. MITRAL VALVE Structurally normal mitral valve. No mitral valve stenosis or regurgitation. AORTIC VALVE Trileaflet aortic valve. No aortic valve stenosis or regurgitation. TRICUSPID VALVE There is mild tricuspid regurgitation. The estimated pulmonary arterial pressure is 60.1 mmHg. There is estimated esdpfexe-cw-wofzhu pulmonary hypertension present (range 60-70 mmHg). PULMONARY VALVE The pulmonary valve is not well visualized. VESSELS The inferior vena cava is normal in size. PERICARDIUM No pericardial effusion. Nadeen Jarvis MD (Electronically Signed) Final Date:02 February 2018 13:43
[2018-02-02 14:20] LABS: BLOOD UREA NITROGEN 20 MG/DL (7-18); CALCIUM 8.8 MG/DL (8.5-10.1); CHLORIDE 87 MEQ/L (98-107); CREATININE 0.62 MG/DL (0.50-1.00); GLOMERULAR FILTRATION RATE 95 ML/MIN (>89); GLUCOSE,RANDOM 108 MG/DL (74-106); SODIUM (NA) 139 MEQ/L (136-145)
[2018-02-02] MEDS ORDERED: IOHEXOL 350 MG/ML 10 ML VIAL (for RAD DIAG) IVCONTRAST ONE (14:32)
[2018-02-02 14:34] LABS: BICARBONATE GREATER THAN 45.0 MEQ/L (21.0-32.0)
--- NOTE | 2018-02-02 14:46 | RADRPT ---
EXAM DATE/TIME: 02/02/2018 14:14 [facility] COMPARISON: No previous studies available for comparison. INDICATIONS : Short of breath. IV CONTRAST: 60 cc Omnipaque 350 (iohexol) IV RADIATION DOSE: 4.32 CTDIvol (mGy) MEDICAL HISTORY : Carcinoma, breast. SURGICAL HISTORY : Right lumpectomy ENCOUNTER: Initial ACUITY: 1 day PAIN SCALE: 3/10 LOCATION: chest TECHNIQUE: Volumetric scanning of the chest was performed using a pulmonary embolism protocol MIP images were re constructed. Using automated exposure control and adjustment of the mA and/or kV according to patien t size, radiation dose was kept as low as reasonably achievable to obtain optimal diagnostic quality images. DICOM format image data is available electronically for review and comparison. Follow-up recommendations for detected pulmonary nodules are based at a minimum on nodule size and pa tient risk factors according to Fleischner Society Guidelines. FINDINGS: PULMONARY ARTERIES: No filling defects are seen in the pulmonary arteries through the segmental level. LUNGS: Severe bilateral emphysematous changes with biapical pleural-parenchymal scarring. 1.2 cm nodular den sity in the right upper lobe. Partially calcified nodule posteriorly in the superior segment of the l eft lower lobe. No confluent infiltrate or effusion. PLEURAE: There is no pleural thickening or pleural effusion. MEDIASTINUM: There is good visualization of the great vessels of the middle mediastinum. No evidence of mediastin al or hilar adenopathy/mass. MUSCULOSKELETAL: Within normal limits for patient age. MISCELLANEOUS: The visualized upper abdominal organs demonstrate no acute abnormality. CONCLUSION: 1. Severe bilateral emphysematous changes with biapical pleural-parenchymal scarring. 2. 1.2 cm nodular density in the right upper lung posteriorly. Recommend followup, noncontrasted CT s can of the chest in 3-6 months to ensure stability. 3. No pulmonary embolus. Dex Hammer MD on February 02, 2018 at 14:41 Board Certified Radiologist. This report was verified electronically.
[2018-02-02] MEDS: LEVOFLOXACIN 750 MG PREMIX INJ 150 ML IV SCH (22:09)
[2018-02-03] VITALS (10 sets, daily range): BP systolic 97–133; BP diastolic 58–69; PULSE 78–101; RESP 16–20; TEMP 97.5–98.7; O2SAT 89–96
[2018-02-03] MEDS: methylPREDNISolone SOD SUCC 40 MG/1 ML VIAL IV PUSH SCH ×2 (05:31→20:56)
[2018-02-03 07:16] LABS: AUTOMATED NEUTROPHIL # 10.6 TH/MM3 (1.8-7.7); HEMATOCRIT 45.2 % (35.0-46.0); HEMOGLOBIN 14.5 GM/DL (11.6-15.3); LYMPH % 3.5 % (9.0-44.0); LYMPHOCYTE # 0.4 TH/MM3 (1.0-4.8); MEAN CELL VOLUME 93.3 FL (80.0-100.0); MEAN CORPUSCULAR HGB CONC 32.2 % (32.0-36.0); MEAN PLATELET VOLUME 7.2 FL (7.0-11.0); MONO % 6.2 % (0.0-8.0); MONOCYTE # 0.7 TH/MM3 (0-0.9); NEUT % 90.3 % (16.0-70.0); PLATELET COUNT 200 TH/MM3 (150-450); RED BLOOD COUNT 4.84 MIL/MM3 (4.00-5.30); RED CELL DISTRIBUTION WIDTH 15.5 % (11.6-17.2); WHITE BLOOD COUNT 11.8 TH/MM3 (4.0-11.0)
[2018-02-03 07:39] LABS: ALT (GPT) 40 U/L (10-53); AST (GOT) 16 U/L (15-37); CALCIUM 8.5 MG/DL (8.5-10.1); CHLORIDE 89 MEQ/L (98-107); CREATININE 0.55 MG/DL (0.50-1.00); GLOMERULAR FILTRATION RATE 110 ML/MIN (>89); GLUCOSE,RANDOM 97 MG/DL (74-106); SODIUM (NA) 140 MEQ/L (136-145)
[2018-02-03 07:47] LABS: ALKALINE PHOSPHATASE 75 U/L (45-117); BLOOD UREA NITROGEN 26 MG/DL (7-18); TOTAL BILIRUBIN ADULT 0.4 MG/DL (0.2-1.0); TOTAL PROTEIN 6.1 GM/DL (6.4-8.2)
[2018-02-03 08:09] LABS: BICARBONATE GREATER THAN 45.0 MEQ/L (21.0-32.0)
[2018-02-03] MEDS: BUDESONIDE-FORMOTEROL 160/4.5 MCG INHALER INH SCH ×2 (08:48→20:58)
[2018-02-03] MEDS: SODIUM CHLORIDE 0.9% FLUSH 10 ML FLUSH IV FLUSH SCH ×2 (08:49→20:58)
[2018-02-03] MEDS: FUROSEMIDE 20 MG/2 ML VIAL IV PUSH SCH (08:49)
[2018-02-03] MEDS: DOCUSATE SODIUM 50 MG/SENNA 8.6 MG TAB PO SCH ×2 (08:49→20:57)
[2018-02-03] MEDS: guaiFENesin E.R. 600 MG TAB PO SCH ×2 (08:49→20:55)
[2018-02-03] MEDS: RESP: ALBUTEROL 2.5 MG/IPRATROPIUM 0.5 MG NEB (SCH) NEB ×4 (09:04→20:04)
--- NOTE | 2018-02-03 09:07 | HHI.PR ---
Subjective Remarks Pt seen and examined. VS reviewed. Supplemental O2 up to 4L. Echo revealed mod- severe pulmonary HTN. CTA was negative for embolus but showed severe emphysematous changes as well as a 1.2 cm right upper lung nodule that the patient states she was not previously aware of. She reports today her breathing is getting better though she admits she has not really been up out of bed which is when her breathing worsens. She denies chest pain, wheezing, abdominal pain, N/V. She endorses a dry cough. Objective Vital Signs Date Time Temp Pulse Resp B/P (MAP) Pulse Ox O2 Delivery O2 Flow Rate FiO2 02/03/18 04:00 Nasal Cannula 4.00 02/03/18 04:00 98.2 101 20 133/68 (89) 93 02/03/18 03:44 89 02/03/18 00:00 98.7 101 20 110/59 (76) 91 02/02/18 23:42 100 02/02/18 22:14 93 Nasal Cannula 4.00 02/02/18 20:01 93 Nasal Cannula 4.00 02/02/18 20:00 97.0 108 20 126/73 (90) 96 02/02/18 19:37 105 02/02/18 16:00 98.0 106 18 123/62 (82) 92 02/02/18 16:00 107 02/02/18 12:00 90 02/02/18 12:00 98.3 101 20 126/58 (80) 92 I/O 02/02/18 02/02/18 02/02/18 02/03/18 02/03/18 02/03/18 07:00 15:00 23:00 07:00 15:00 23:00 Intake Total 600 ml 720 ml 420 ml Balance 600 ml 720 ml 420 ml Intake Oral 600 ml 720 ml 420 ml # Voids 3 3 2 # Bowel Movements 0 Result Diagram: 02/03/18 0646 02/03/[address] Angiography 02/02/18 0000 Signed Impressions: Service Date/Time: Friday, February 02, 2018 14:14 - CONCLUSION: 1. Severe bilateral emphysematous changes with biapical pleural-parenchymal scarring. 2. 1.2 cm nodular density in the right upper lung posteriorly. Recommend followup , noncontrasted CT scan of the chest in 3-6 months to ensure stability. 3. No pulmonary embolus. Dex Hammer MD Chest X-Ray 01/31/18 0000 Signed Impressions: Service Date/Time: January 19:49 - CONCLUSION: Interstitial prominence and possible small effusions. Segundo Rodriguez MD Other Results 2D echo 02/02: Normal LV size with an EF 60-65%. RV moderately dilated and RV systolic function moderately decreased. RA size moderately to severely dilated. Moderate tricuspid regurg. Estimated pulmonary arterial pressure 60 mmHg. Objective Remarks GENERAL: Thin female sitting up in bed in NAD. SKIN: Warm and dry. HEENT: AT/NC. Pupils equal and round. MMM. HEART: RRR no m/r/g. LUNGS: Diminished breath sounds otherwise clear without wheezing or crackles.. ABDOMEN: +BS, soft, NT, ND. EXTREMITIES: No LE edema. 2+ pedal pulses. NEURO: Awake and alert. Nonfocal. PSYCH: Appropriate mood and affect. A/P Assessment and Plan 67 YOWF with COPD and breast cancer s/p lumpectomy and radiation admitted on for COPD exacerbation after failing outpatient treatment. 1. COPD exacerbation - Pt initially hypoxic with 73% O2 sat on room air in the ED, improved with 4L nasal cannula - CXR on admission with interstitial prominence and possible small effusions - Failed outpatient therapy with Levaquin, Medrol dosepak, and bronchodilators - Continue Symbicort and Mucinex - Continue DuoNebs - Change Levaquin to PO - Decrease Solu-Medrol to 40 IV Q12 - Sputum cultures with normal respiratory magdalene - Urine legionella and strep urine Ag pending - Supplemental O2 - CT showing severe bilateral emphysematous changes 2. Hypoxia/dyspnea - Improved with nasal cannula - Supplemental O2 to maintain sats >92% - Not on home O2. Will need O2 walk test prior to discharge if still requiring oxygen - 2D echo with preserved EF of 60-65% but moderate to severe pulmonary HTN - CTA negative for embolism - Discontinue Lasix since euvolemic 3. Pulmonary HTN - 2D echo demonstrating moderate to severe pulm HTN with PA pressure 60.1 mmHg as well as RV moderately dilated and RV systolic function moderately decreased, RA size mod-severely enlarged - Consult pulmonology to evaluate for treatment - Supplemental O2 4. H/o breast cancer - s/p lumpectomy and radiation in the fall - Currently off of hormone therapy secondary to side effects of edema and shortness of breath - F/u as OP 5. Pulmonary nodule - 1.2 cm nodular density in R upper lung. Recommended f/u with noncontrast CT in 3-6 months to ensure stability DVT prophylaxis: Lovenox Discharge Planning Possibly in 2-3 days if remains clinically stable and continues to improve Magda Cui MD Feb 03, 2018 09:07
[2018-02-03] MEDS: ENOXAPARIN SODIUM 40 MG/0.4 ML SYRINGE SQ SCH (10:27)
--- NOTE | 2018-02-03 11:45 | MB ---
cc: Sary Alonso MD DATE: 02/03/2018 REASON FOR CONSULTATION: COPD exacerbation. HISTORY OF PRESENT ILLNESS: The patient is a 67-year-old female with a past medical history of COPD, tobacco abuse, breast cancer, status post chemoradiation, who presented to [facility] ED with complaints of shortness of breath associated with wheezing and productive cough for the past 2 days. She states that she had cold symptoms last week and was given antibiotics and prednisone by her primary care physician without any significant relief. She quit smoking 3 years ago, and she has a 92-wzyh-gtwq history of smoking. The patient denies any use of home oxygen; however, she is on ProAir and Advair at home. She denies any fever, chills or any constitutional symptoms. A chest x-ray on arrival showed interstitial prominence. She subsequently underwent CT angiogram of the chest which showed no evidence of pulmonary embolism; however, it showed severe bilateral emphysematous changes with biapical pleural parenchymal scarring and 1.2 cm nodular density in the right upper lobe posteriorly. She was admitted under hospitalist service and started on bronchodilators, steroids and antibiotics. When seen, she is on 4 liter oxygen with saturation ranges between 91-93%. She appears comfortable. The patient denies any orthopnea, PND; however, she reports intermittent swelling of her ankles. Furthermore, the patient denies any nausea, vomiting or abdominal pain. PAST MEDICAL HISTORY: Significant for breast cancer, status post chemoradiation and COPD. PAST SURGICAL HISTORY: Previous tonsillectomy, previous left breast lumpectomy. ALLERGIES: NO KNOWN DRUG ALLERGIES. FAMILY HISTORY: Noncontributory to present illness. MEDICATIONS AT HOME: Include ProAir and Advair. SOCIAL HISTORY: Occasional drinker. She quit smoking 3 years ago. She has a [id number]-[id number] history of smoking. REVIEW OF SYSTEMS: As per HPI. The rest of the review of systems is unremarkable. PHYSICAL EXAMINATION: GENERAL: A 67-year-old female lying in bed in no acute respiratory distress. VITAL SIGNS: Temperature 97.9, pulse 85, respiratory rate 17, blood pressure 133/69, saturation 90-93% on 4 liter oxygen. HEENT: Atraumatic, normocephalic. Pupils are equal, round, reactive to light and accommodation. Extraocular muscles intact. Conjunctivae pink. Nonicteric sclerae. Oral mucosa within normal. NECK: Supple. No JVD, adenopathy, thyromegaly. Trachea midline. HEART: Regular rate and rhythm. Normal S1, S2, no murmurs, rubs or gallops noted. LUNGS: Bilateral equal air entry. No wheezing, overall diminished. ABDOMEN: Soft, nontender. No distention. Positive bowel sounds. EXTREMITIES: No cyanosis, clubbing, edema. NEUROLOGIC: No focal sensory deficit. LABORATORY DATA: Sodium 140, potassium 4.3, chloride 89, CO2 greater than 45, BUN 26, creatinine 0.55, glucose 97. WBC 11.8, hemoglobin 14.5, hematocrit 45, platelet count 200. INR 1.0, PT 10.5, PTT 24.4. RADIOGRAPHIC STUDIES: A CT angiogram of the chest showed no evidence of PE; however, it showed COPD changes and 1.2 cm nodular density right upper lobe. IMPRESSION: 1. Acute hypoxemic respiratory insufficiency. 2. Chronic obstructive pulmonary disease exacerbation. 3. A 1.2 cm nodular density right upper lobe. 4. Moderate to severe pulmonary hypertension. 5. History of tobacco abuse. 6. History of breast CA. RECOMMENDATIONS: 1. Continue with oxygen and maintain sats above 92%. 2. Bronchodilators in the form of DuoNeb q. 4 plus q. 2 hours p.r.n. for shortness of breath and Symbicort 160/4.5 two puffs q. 12 hours. 3. Agree with IV steroids. She was started on Solu-Medrol 40 mg IV q. 12 hours. 4. Noninvasive positive pressure ventilation p.r.n. for respiratory distress. 5. Will give Diamox 250 mg IV x 1. 6. Will need to repeat CT scan of the chest without contrast in 3 months to followup on the stability of nodular density in the right upper lobe. 7. Pulmonary function test as an outpatient to assess the severity of her obstructive lung disease. 8. Continue with empiric antibiotics in the form of Levaquin and monitor for signs of infection which include fever and WBC. 9. Echocardiogram showed EF of 60-65% and moderate to severe pulmonary hypertension in the range of 60-70 mmHg. Her pulmonary hypertension likely secondary to her obstructive lung disease. 10. Gastrointestinal and deep venous thrombosis prophylaxis per primary team. The patient was placed on Lovenox 40 mg subcutaneous daily. 11. Further recommendations will be based on the hospital course. Thank you for the consultation and allowing us to participate in this patient's care. MD RICK Dubon/SAHIL , 10:47 AM , 11:45 AM WINNIE
[2018-02-03] MEDS ORDERED: LEVOFLOXACIN 750 MG TAB PO SCH (20:00)
[2018-02-04] VITALS (10 sets, daily range): BP systolic 93–126; BP diastolic 57–93; PULSE 77–94; RESP 20; TEMP 97.2–98.9; O2SAT 94–98
[2018-02-04 05:02] LABS: AUTOMATED NEUTROPHIL # 9.2 TH/MM3 (1.8-7.7); BASOPHIL % 0.1 % (0.0-2.0); HEMATOCRIT 48.5 % (35.0-46.0); HEMOGLOBIN 15.5 GM/DL (11.6-15.3); LYMPH % 3.6 % (9.0-44.0); LYMPHOCYTE # 0.4 TH/MM3 (1.0-4.8); MEAN CELL VOLUME 93.5 FL (80.0-100.0); MEAN CORPUSCULAR HEMOGLOBIN 29.8 PG (27.0-34.0); MEAN CORPUSCULAR HGB CONC 31.9 % (32.0-36.0); MEAN PLATELET VOLUME 7.6 FL (7.0-11.0); MONO % 4.5 % (0.0-8.0); MONOCYTE # 0.4 TH/MM3 (0-0.9); NEUT % 91.8 % (16.0-70.0); PLATELET COUNT 201 TH/MM3 (150-450); RED BLOOD COUNT 5.19 MIL/MM3 (4.00-5.30); RED CELL DISTRIBUTION WIDTH 15.6 % (11.6-17.2)
[2018-02-04 05:34] LABS: BICARBONATE 41.2 MEQ/L (21.0-32.0); CALCIUM 9.3 MG/DL (8.5-10.1); CREATININE 0.72 MG/DL (0.50-1.00)
[2018-02-04] MEDS: RESP: ALBUTEROL 2.5 MG/IPRATROPIUM 0.5 MG NEB (SCH) NEB ×3 (08:29→17:13)
[2018-02-04] MEDS: guaiFENesin E.R. 600 MG TAB PO SCH (08:59)
[2018-02-04] MEDS ORDERED: FUROSEMIDE 40 MG TAB PO SCH (09:00)
[2018-02-04] MEDS: methylPREDNISolone SOD SUCC 40 MG/1 ML VIAL IV PUSH SCH (09:00)
[2018-02-04] MEDS: SODIUM CHLORIDE 0.9% FLUSH 10 ML FLUSH IV FLUSH SCH (09:00)
[2018-02-04] MEDS: DOCUSATE SODIUM 50 MG/SENNA 8.6 MG TAB PO SCH (09:00)
[2018-02-04] MEDS: BUDESONIDE-FORMOTEROL 160/4.5 MCG INHALER INH SCH (09:06)
[2018-02-04] MEDS: ENOXAPARIN SODIUM 40 MG/0.4 ML SYRINGE SQ SCH (11:00)
--- NOTE | 2018-02-04 11:05 | HHI.DS ---
Discharge Summary Admission Date Jan 31, 2018 at 22:29 Discharge Date: Feb 04, 2018 Admitting Diagnosis (1) COPD (chronic obstructive pulmonary disease) ICD Code: J44.9 - Chronic obstructive pulmonary disease, unspecified (2) Hypoxia ICD Code: R09.02 - Hypoxemia (3) Pleural effusion ICD Code: J90 - Pleural effusion, not elsewhere classified (4) Breast CA ICD Code: C50.919 - Malignant neoplasm of unspecified site of unspecified female breast Procedures None Brief History - From Admission This is a 67-year-old male with a PMH of Breast CA s/p Chemo/Radiation and COPD who presented to the ER with complaints of SOB and wheezing x2 days. Has been using ProAir and Advair with no relief. Not on home O2. Does note recent productive cough w/ green colored sputum, has been on Levaquin and Medrol Dosepak x1wk w/ no improvement. Denies fever, chills or chest pain. On arrival , BP 142/94, HR 86, O2 sat 73% on RA, Afebrile. O2 sat currently 95% on 2L NC. CBC essentially unremarkable except for mild hemoconcentration. Chemistry essentially unremarkable except for GFR 78. BNP 794. INR 1.0 CXR with interstitial prominence and possible small effusion. Notes ankle swelling x2 wks, no h/o CHF. S/p Lasix, DuoNeb and Solu-Medrol in ER w/ improvement. CBC/BMP: 02/04/18 0340 02/04/18 0340 Significant Findings Laboratory Tests Test 02/02/18 12:15 02/02/18 20:00 02/03/18 06:46 02/04/18 03:40 Blood Urea Nitrogen 20 MG/DL (7-18) 26 MG/DL (7-18) 25 MG/DL (7-18) Random Glucose 108 MG/DL (74-106) 136 MG/DL (74-106) Chloride Level 87 MEQ/L (98-107) 89 MEQ/L (98-107) 93 MEQ/L (98-107) Carbon Dioxide Level GREATER THAN 45.0 MEQ/L GREATER THAN 45.0 MEQ/L 41.2 MEQ/L (21.0-32.0) White Blood Count 11.8 TH/MM3 (4.0-11.0) Neutrophils (%) (Auto) 90.3 % (16.0-70.0) 91.8 % (16.0-70.0) Lymphocytes (%) (Auto) 3.5 % (9.0-44.0) 3.6 % (9.0-44.0) Neutrophils # (Auto) 10.6 TH/MM3 (1.8-7.7) 9.2 TH/MM3 (1.8-7.7) Lymphocytes # (Auto) 0.4 TH/MM3 (1.0-4.8) 0.4 TH/MM3 (1.0-4.8) Total Protein 6.1 GM/DL (6.4-8.2) Albumin 3.0 GM/DL (3.4-5.0) Hemoglobin 15.5 GM/DL (11.6-15.3) Hematocrit 48.5 % (35.0-46.0) Mean Corpuscular Hemoglobin Concent 31.9 % (32.0-36.0) Estimat Glomerular Filtration Rate 80 ML/MIN (>89) Imaging CT Angiography 02/02/18 0000 Signed Impressions: Service Date/Time: Friday, February 02, 2018 14:14 - CONCLUSION: 1. Severe bilateral emphysematous changes with biapical pleural-parenchymal scarring. 2. 1.2 cm nodular density in the right upper lung posteriorly. Recommend followup , noncontrasted CT scan of the chest in 3-6 months to ensure stability. 3. No pulmonary embolus. Dex Hammer MD Chest X-Ray 01/31/18 0000 Signed Impressions: Service Date/Time: January 19:49 - CONCLUSION: Interstitial prominence and possible small effusions. Segundo Rodriguez MD PE at Discharge GENERAL: Very pleasant, thin middle-aged white female in no acute distress. CARDIOVASCULAR: Regular rate and rhythm. No obvious murmurs to auscultation. No chest tenderness to palpation. RESPIRATORY: +wheezing, decreased breath sounds. No obvious rhonchi. On 2L NC GASTROINTESTINAL: Abdomen soft, non-tender, nondistended. BS normal. MUSCULOSKELETAL: Extremities without clubbing, cyanosis, or edema. No obvious deformities. NEUROLOGICAL: Awake, alert and oriented x4. No focal neurologic deficits. Moving both upper and lower extremities spontaneously. Pt update on day of discharge Pt reports feeling much better. Breathing has improved. Denies CP, abdominal pain, N/V. Tolerating PO. Ambulating. Wants to be able to go back to work. Hospital Course 67 YOWF with COPD, history of tobacco abuse (quit 2 years ago), and breast cancer s/p lumpectomy and radiation admitted on 01/31 for COPD exacerbation after failing outpatient treatment. 1. COPD exacerbation - Pt initially hypoxic with 73% O2 sat on room air in the ED, improved with 4L nasal cannula - CXR on admission with interstitial prominence and possible small effusions - Sputum cultures with normal respiratory magdalene - Urine legionella and strep urine Ag negative - CT showing severe bilateral emphysematous changes - Failed outpatient therapy with Levaquin, Medrol dosepak, and bronchodilators - Treated with Levaquin, SoluMedrol, DuoNebs, Symbicort, Mucinex, and supplemental oxygen - Discharged home on prednisone, Levaquin, DuoNeb, and increased dose of Advair 2. Hypoxia - Required 3-4L nasal cannula throughout stay - Failed O2 walk test who recommended 4L O2 - 2D echo with preserved EF of 60-65% but moderate to severe pulmonary HTN - CTA negative for embolism 3. Pulmonary HTN - 2D echo demonstrating moderate to severe pulm HTN with PA pressure 60.1 mmHg as well as RV moderately dilated and RV systolic function moderately decreased, RA size mod-severely enlarged - Pulmonology consulted who recommended management of underlying COPD and outpatient pulmonology follow-up for PFTs 4. H/o breast cancer - s/p lumpectomy and radiation in the fall - Currently off of hormone therapy secondary to side effects of edema and shortness of breath - F/u as OP 5. Pulmonary nodule - 1.2 cm nodular density in R upper lung. Recommended f/u with noncontrast CT in 3-6 months to ensure stability Pt Condition on Discharge: Stable Discharge Disposition: Discharge Home Discharge Time: <= 30 minutes Discharge Instructions DIET: Follow Instructions for: As Tolerated, No Restrictions Activities you can perform: Regular-No Restrictions Follow up Referrals: PCP Follow-up - 1 Week PCP Follow-up - 1 Week @ [place] New Medications: Compressor Nebulizer (Compressor Nebulizer) 1 Mis Mis EA .XX DIRECTED for Breathing Treatment, #1 0 Refills Fluticasone-Salmeterol Inh (Advair Diskus Inh) 250-50 Mcg/Blist Aer 1 PUFF INH BID for Shortness of Breath, #1 INHALER 0 Refills Rinse mouth after use. Ipratropium-Albuterol Neb (Duoneb) 0.5-2.5 Mg/3 Ml Neb 1 NEBULE INH Q4HR NEB for SHORTNESS OF BREATH, #120 NEBULE 0 Refills Oxygen (O2) (Oxygen (O2)) Device LITER HUMBLE.CANULA CONTINUOUS for Prevent Hypoxemia, #4 99 Refills Oxygen Concentrator Portable Gaseous 2 L/min via Nasal Canula Continuous For 99 months Prednisone (Prednisone) 20 Mg Tab 40 MG PO DAILY for Shortness of Breath, #5 TAB 0 Refills Take 40 mg (2 tablets) daily for 5 days Continued Medications: Albuterol 8.5 GM Inh (Proair Hfa 8.5 GM Inh) 90 Mcg/Act Aer 2 PUFF INH Q4-6H PRN for SHORTNESS OF BREATH, #1 INHALER 0 Refills 108 mcg/actuation Levofloxacin (Levaquin) 500 Mg Tablet 500 MG PO DAILY for Infection, #5 TAB 0 Refills (This prescription has been renewed) Discontinued Medications: Fluticasone-Salmeterol Inh (Advair Diskus Inh) 100-50 Mcg/Blist Aer 1 PUFF INH BID for Asthma Management, #1 INHALER 0 Refills Rinse mouth after use. [prednisone dose pack] () Unknown Dose PO DAILY Magda Cui MD Feb 04, 2018 11:05
[2018-02-04] MEDS ORDERED: OXYGENDME NAS.CANULA (11:37)
[2018-02-04] MEDS ORDERED: LEVA500T33 PO (11:37)
[2018-02-04] MEDS ORDERED: ADVA250A INH (11:37)
--- NOTE | 2018-02-04 11:39 | HHI.DCPOC ---
Discharge Care Plan Diagnosis: (1) COPD exacerbation (2) Hypoxemia (3) Pulmonary nodule Goals to Promote Your Health * To prevent worsening of your condition and complications * To maintain your health at the optimal level Directions to Meet Your Goals Take your medications as prescribed Follow your dietary instruction Follow activity as directed Keep your appointments as scheduled Take your immunizations and boosters as scheduled If your symptoms worsen call your PCP, if no PCP go to Urgent Care Center or Emergency Room Smoking is Dangerous to Your Health. Avoid second hand smoke Call the 24-hour hour crisis hotline for domestic abuse at Please follow-up with your PCP to be referred to pulmonology for outpatient pulmonary function tests and monitoring of your COPD and pulmonary hypertension. You will also need a follow-up noncontrast CT scan of your chest in 3-6 months to ensure stability of nodular density found in your right upper lung. Magda Cui MD Feb 04, 2018 11:39
[2018-02-04] MEDS ORDERED: PRED20 PO (11:41)
[2018-02-04] MEDS ORDERED: IPRASOL INH (11:43)
[2018-02-04] MEDS ORDERED: COMPRESSOR NEBU1 MIS (11:43)
--- NOTE | 2018-02-04 18:23 | HHI.PR ---
Subjective Remarks ALERT LESS SOB Objective Vital Signs Date Time Temp Pulse Resp B/P (MAP) Pulse Ox O2 Delivery O2 Flow Rate FiO2 02/04/18 15:30 97.2 92 20 93/93 (93) 95 02/04/18 12:08 4.00 02/04/18 12:07 94 Nasal Cannula 4.00 02/04/18 12:00 98.1 77 20 121/57 (78) 97 02/04/18 08:28 95 Nasal Cannula 2.00 02/04/18 08:13 86 02/04/18 08:00 Nasal Cannula 4.00 02/04/18 08:00 97.9 84 20 126/77 (93) 98 02/04/18 04:00 98.0 86 20 122/70 (87) 97 02/04/18 03:42 88 02/04/18 00:00 98.9 94 20 119/69 (86) 97 02/03/18 23:43 86 02/03/18 20:05 96 Nasal Cannula 4.00 02/03/18 20:00 97.7 89 20 112/65 (81) 93 02/03/18 19:45 78 I/O 02/03/18 02/03/18 02/03/18 02/04/18 02/04/18 02/04/18 07:00 15:00 23:00 07:00 15:00 23:00 Intake Total 420 ml 480 ml 380 ml 480 ml Balance 420 ml 480 ml 380 ml 480 ml Intake Oral 420 ml 480 ml 380 ml 480 ml # Voids 2 5 3 # Bowel Movements 0 0 Result Diagram: 02/04/18 0340 02/04/18 0340 Objective Remarks GENERAL: SKIN: Warm and dry. HEAD: Atraumatic. Normocephalic. EYES: Pupils equal and round. No scleral icterus. No injection or drainage. ENT: No nasal bleeding or discharge. Mucous membranes pink and moist. NECK: Trachea midline. No JVD. CARDIOVASCULAR: Regular rate and rhythm. RESPIRATORY: No accessory muscle use. Clear to auscultation. Breath sounds equal bilaterally. GASTROINTESTINAL: Abdomen soft, non-tender, nondistended. Hepatic and splenic margins not palpable. MUSCULOSKELETAL: Extremities without clubbing, cyanosis, or edema. No obvious deformities. NEUROLOGICAL: Awake and alert. No obvious cranial nerve deficits. Motor grossly within normal limits. Five out of 5 muscle strength in the arms and legs. Normal speech. PSYCHIATRIC: Appropriate mood and affect; insight and judgment normal. Assessment and Plan Assessment and Plan IMP COPD PULM HTN RESPIRATORY FAILURE PLANO2 NEEDED BRONCHODILATOR THERAPY INCREASE ACTIVITY Selene Morton MD Feb 04, 2018 18:23
== END 2018-02-04 18:37 | disposition home or self-care (01) | DRG 191 ==
LOC: NEPC 19:13 → NEDA 22:29 → NEDH 02-01 02:29 → N04A 02-01 17:26
PROVIDERS: ADMIT Internal Medicine; ATTEND Internal Medicine
DX: J44.1 Chronic obstructive pulmonary disease with (acute) exacerbation (principal); J90 Pleural effusion, not elsewhere classified; I27.20 Pulmonary hypertension, unspecified; R09.02 Hypoxemia; R91.1 Solitary pulmonary nodule; Z85.3 Personal history of malignant neoplasm of breast; Z92.3 Personal history of irradiation; Z92.21 Personal history of antineoplastic chemotherapy; Z87.891 Personal history of nicotine dependence; Z79.51 Long term (current) use of inhaled steroids; Z79.899 Other long term (current) drug therapy
CPT/HCPCS: 71045; 71275; 80048; 80053; 80074; 80076; 82550; 83880; 84484; 85025; 85610; 85730; 87070; 87205; 87449; 93005; 93306; 94150; 94618; 94640; 94664; 96374; 96375; J1120; J1650; J1940; J1956; J2920; J2930; Q9967

== ENCOUNTER → 2018-03-18 | Outpatient (CLI) | payer OTHER, MEDICARE ==
[~2018-03-18] MED LIST changes: +ALBUAER3 INH; -AZIT500I PO; -COMBAER INH; +COMPRESSOR NEBU1 MIS; +IPRASOL INH; +LEVA500T33 PO; +OXYGENDME NAS.CANULA; -PRED10PA PO; +PRED20 PO; -VENTAER INH
--- NOTE | 2018-03-20 08:28 | RSPPFT ---
DATE OF PROCEDURE: 03/18/18 COMMENTS: Spirometry with FVC of 2.3, FEV1 of 0.8, FEV1/FVC ratio at 36%. Slow vital capacity is 65% of predicted. TLC is 84%. Diffusion capacity is 39%. Room air arterial blood gases show pH of 7.43, PCO2 of 46, PO2 of 61. IMPRESSION: 1. Severe airways obstruction. 2. No evidence of airways restriction. 3. Severe reduction in diffusion capacity. 4. Hypercapnic and hypoxic respiratory failure.
== END ==
LOC: HRSP 12:54
PROVIDERS: ATTEND Internal Medicine Sleep Medicine
DX: R06.89 Other abnormalities of breathing (principal)
CPT/HCPCS: 36600; 82805; 94060; 94726; 94729